=== PATIENT | female | born 1970 | race African-American/Black ===

== ENCOUNTER 2024-11-27 09:38 | Emergency (ER) | payer OTHER ==
[2024-11-27 09:44] VITALS: BP 104/60; PULSE 73; RESP 20; TEMP 97.6; BMI 21.6
[2024-11-27 11:00] LABS: BASO % 0.8 % (0-2.0); EOS % 1.8 % (0-4.5); HEMATOCRIT 36.5 % (32.4-45.2); HEMOGLOBIN 12.3 GM/dL (10.7-15.3); LYMPH % 18.8 % (8-40); MCHC 33.6 g/dl (32.0-36.0); MEAN CELL VOLUME 86.4 fl (80-96); MEAN PLT VOLUME 8.6 fl (7.5-11.1); MONO % 8.1 % (3.8-10.2); NEUT % 70.5 % (42.8-82.8); PLATELET COUNT 240 10^3/uL (134-434); RBC 4.22 M/mm3 (3.60-5.2); RDW 13.5 % (11.6-15.6); WHITE BLOOD COUNT 4.8 K/mm3 (4.0-10.0)
[2024-11-27 11:07] LABS: EPI CELLS 9 /uL (0-25.1); HYALINE CASTS 0 /uL (0-3.1); URINE APPEARANCE CLEAR; URINE BACTERIA 119 /uL (0-1359); URINE BILIRUBIN NEGATIVE (NEGATIVE); URINE COLOR YELLOW; URINE GLUCOSE (UA) NEGATIVE (NEGATIVE); URINE KETONE NEGATIVE (NEGATIVE); URINE LEUK ESTERASE 2+ (NEGATIVE); URINE NITRITE NEGATIVE (NEGATIVE); URINE PROTEIN NEGATIVE (NEGATIVE); URINE RBC 12 /uL (0-23.9); URINE UROBILINOGEN 0.2 mg/dL (0.2-1.0); URINE WBC 139 /uL (0-25.8)
[2024-11-27 11:24] LABS: POTASSIUM 3.8 mmol/L (3.5-5.1)
[2024-11-27 11:26] LABS: ALBUMIN 4.1 g/dl (3.4-5.0); BLOOD UREA NITROGEN 14.4 mg/dL (7-18); CALCIUM 9.1 mg/dL (8.5-10.1)
[2024-11-27 11:30] LABS: CREATININE 0.6 mg/dL (0.55-1.3)
[2024-11-27 11:31] LABS: BILIRUBIN,TOTAL 0.7 mg/dL (0.2-1); TOT PROT 7.2 g/dl (6.4-8.2)
[2024-11-27 12:55] LABS: HIV INTERPRETATION NEGATIVE (NEGATIVE)
[2024-11-27] MEDS ORDERED: ACETAMINOPHEN 500 MG TABLET (FP) ONE (12:58)
[2024-11-27] MEDS: ACETAMINOPHEN 500 MG TABLET (FP) PO ONE (13:00)
[2024-11-27] MEDS ORDERED: MAG HYDROX/AL HYDROX/SIMETH 30 ML UNIT-DOSE CUP ONE (14:39)
[2024-11-27] MEDS ORDERED: FAMOTIDINE 20 MG TABLET ONE (14:39)
[2024-11-27] MEDS: MAG HYDROX/AL HYDROX/SIMETH 30 ML UNIT-DOSE CUP PO ONE (14:42)
[2024-11-27] MEDS: FAMOTIDINE 20 MG TABLET PO ONE (14:42)
== END 2024-11-27 15:05 | disposition home or self-care (01) ==
LOC: JER 09:38
DX: K29.70 Gastritis, unspecified, without bleeding (principal); N89.8 Other specified noninflammatory disorders of vagina; R10.12 Left upper quadrant pain; R10.2 Pelvic and perineal pain; R10.30 Lower abdominal pain, unspecified
CPT/HCPCS: 36415; 74177-TC; 80053; 81003; 83690; 85025; 86803; 87070; 87086; 87186; 87205; 87389; 99285-25; Q9967

== ENCOUNTER 2024-12-15 09:40 | Observation (INO) | payer OTHER ==
[2024-12-15 09:49] VITALS: BMI 26.8
[2024-12-15 11:23] LABS: EPI CELLS 28 /uL (0-25.1); HYALINE CASTS 2 /uL (0-3.1); PH,URINE 5.5 (5.0-8.0); URINE APPEARANCE CLEAR; URINE BACTERIA 22 /uL (0-1359); URINE BILIRUBIN NEGATIVE (NEGATIVE); URINE COLOR YELLOW; URINE GLUCOSE (UA) NEGATIVE (NEGATIVE); URINE KETONE NEGATIVE (NEGATIVE); URINE LEUK ESTERASE 1+ (NEGATIVE); URINE NITRITE NEGATIVE (NEGATIVE); URINE PROTEIN NEGATIVE (NEGATIVE); URINE RBC 13 /uL (0-23.9); URINE UROBILINOGEN 0.2 mg/dL (0.2-1.0); URINE WBC 212 /uL (0-25.8)
[2024-12-15 11:28] LABS: BASO % 0.7 % (0-2.0); EOS % 2.2 % (0-4.5); HEMATOCRIT 36.8 % (32.4-45.2); HEMOGLOBIN 12.4 GM/dL (10.7-15.3); LYMPH % 28.4 % (8-40); MCH 28.8 pg (25.7-33.7); MCHC 33.8 g/dl (32.0-36.0); MEAN CELL VOLUME 85.1 fl (80-96); MEAN PLT VOLUME 8.6 fl (7.5-11.1); MONO % 8.9 % (3.8-10.2); NEUT % 59.8 % (42.8-82.8); PLATELET COUNT 238 10^3/uL (134-434); RBC 4.32 M/mm3 (3.60-5.2); RDW 13.5 % (11.6-15.6); WHITE BLOOD COUNT 4.8 K/mm3 (4.0-10.0)
[2024-12-15] MEDS ORDERED: ACETAMINOPHEN INJECTION 100 ML ONE (11:54)
[2024-12-15 12:03] LABS: CALCIUM 9.7 mg/dL (8.5-10.1)
[2024-12-15 12:04] LABS: ALBUMIN 4.1 g/dl (3.4-5.0); BLOOD UREA NITROGEN 16.2 mg/dL (7-18)
[2024-12-15] MEDS: ACETAMINOPHEN 1000 MG/100 ML BAG IVPB ONE (12:05)
[2024-12-15 12:07] LABS: CREATININE 0.5 mg/dL (0.55-1.3)
[2024-12-15 12:08] LABS: BILIRUBIN,TOTAL 0.6 mg/dL (0.2-1)
[2024-12-15 12:09] LABS: TOT PROT 7.4 g/dl (6.4-8.2)
[2024-12-15] MEDS ORDERED: CEFTRIAXONE 1 G/50 ML PREMIX 50 ML IVPB ONE (13:02)
[2024-12-15] MEDS: CEFTRIAXONE 1,000 MG in DEXTROSE 5%-WATER - 50 ML IVPB ONE (13:05)
[2024-12-15] MEDS ORDERED: ALBUTEROL SO4 HFA INHALER IH PRN (13:18)
[2024-12-15] MEDS ORDERED: ACETAMINOPHEN 500 MG TABLET (FP) PO PRN (13:22)
[2024-12-15 22:45] VITALS: RESP 18
[2024-12-16] MEDS: LEVOTHYROXINE NA 75 MCG TABLET (FP) PO SCH (06:11)
[2024-12-16] MEDS: CEFTRIAXONE 1 G/50 ML PREMIX 50 ML IVPB SCH (09:02)
[2024-12-16 09:19] LABS: BASO % 0.6 % (0-2.0); EOS % 3.6 % (0-4.5); HEMATOCRIT 36.7 % (32.4-45.2); HEMOGLOBIN 12.6 GM/dL (10.7-15.3); MCHC 34.4 g/dl (32.0-36.0); MEAN CELL VOLUME 84.4 fl (80-96); MEAN PLT VOLUME 8.8 fl (7.5-11.1); MONO % 8.6 % (3.8-10.2); NEUT % 60.2 % (42.8-82.8); PLATELET COUNT 237 10^3/uL (134-434); RBC 4.35 M/mm3 (3.60-5.2); RDW 13.2 % (11.6-15.6); WHITE BLOOD COUNT 4.8 K/mm3 (4.0-10.0)
[2024-12-16 09:36] LABS: CHLORIDE 103 mmol/L (98-107); SODIUM 137 mmol/L (136-145)
[2024-12-16 09:44] LABS: CALCIUM 9.6 mg/dL (8.5-10.1)
[2024-12-16 09:45] LABS: ANION GAP 7 mmol/L (4-13); BLOOD UREA NITROGEN 12.9 mg/dL (7-18); CO2 28 mmol/L (21-32); GLUCOSE,RANDOM 83 mg/dL (74-106)
[2024-12-16 09:48] LABS: CREATININE 0.6 mg/dL (0.55-1.3)
[2024-12-16] MEDS: DOXYCYCLINE INJECTION 100 MG in DEXTROSE 5%-WATER 100 ML IVPB SCH (10:11)
[2024-12-16 14:36] VITALS: BP 117/56; PULSE 75; TEMP 98.8
== END 2024-12-16 17:22 | disposition home or self-care (01) ==
LOC: JER 09:40 → JERBED 12:48 → INTOOBSV 12:48 → UNDOADMOB 12:48 → JERBED 13:18 → J6S 14:53
PROVIDERS: ADMIT Internal Medicine; ATTEND Internal Medicine
DX: R30.0 Dysuria (principal); R10.30 Lower abdominal pain, unspecified; N85.2 Hypertrophy of uterus; E03.9 Hypothyroidism, unspecified; D25.9 Leiomyoma of uterus, unspecified; J45.909 Unspecified asthma, uncomplicated
CPT/HCPCS: 36415; 76830-TC; 76856-TC; 80048; 80053; 81003; 85025; 86140; 87086; 96365; 96366; 96367; 96375; 99285-25; G0378; J0131